=== PATIENT | male | born 1970 | race Caucasian/White ===

== ENCOUNTER 2022-06-16 10:21 | Outpatient (CLI) | payer BC, SELFPAY ==
[2022-06-16 13:01] LABS: Albumin* 4.7 g/dL (3.3-5.0)
[2022-06-16 13:02] LABS: Chloride* 103 mmol/L (96-114); Potassium* 4.3 mmol/L (3.6-5.1); Sodium* 139 mmol/L (135-149)
[2022-06-16 13:04] LABS: Aspartate Amino Transferase* 23 U/L (12-35); Bilirubin Total* 0.9 mg/dL (0.1-1.5); Blood Urea Nitrogen* 16 mg/dL (7-30); Carbon Dioxide* 28 mmol/L (20-32); Cholesterol* 200 mg/dL (90-199); Creatinine* 0.8 mg/dL (0.5-1.5); Estimated Glomerular Filt Rate 106 ml/min; Total Protein* 7.4 g/dL (6.0-8.3)
[2022-06-16 13:05] LABS: Alanine Aminotransferase* 40 U/L (4-50); Alkaline Phosphatase* 92 U/L (40-150); Calcium* 9.2 mg/dL (8.4-10.6); Glucose* 91 mg/dL (60-115); HDL Cholesterol* 39 mg/dL (>=40); LDL Cholesterol Calculated 145 mg/dL (<100); Triglycerides* 79 mg/dL (40-149)
[2022-06-16 13:31] LABS: PSA Screen* 1.35 ng/mL (0.10-4.00)
== END 2022-06-16 10:22 | disposition home or self-care (01) ==
PROVIDERS: PCP Physician Assistant Medical; Visit Provider Physician Assistant Medical
DX: Z00.00 Encounter for general adult medical examination without abnormal findings (principal); Z12.5 Encounter for screening for malignant neoplasm of prostate; Z13.6 Encounter for screening for cardiovascular disorders; Z13.29 Encounter for screening for other suspected endocrine disorder
CPT/HCPCS: 80053; 80061; 84153; 84443

== ENCOUNTER 2022-08-19 08:29 | Emergency (ER) | payer BC, SELFPAY ==
[2022-08-19 08:35] VITALS: BP 151/92; PULSE 82; RESP 16; TEMP 36.4; O2SAT 97; BMI 28.4
--- NOTE | 2022-08-19 08:56 | ED.GENADULT ---
HPI - General Adult General Time Seen by Provider: 08:57 Date Seen: 08/19/22 Chief complaint: Back Injury/Pain Stated complaint: Low back pain Time Seen by Provider: 08/19/22 08:36 Source: patient Mode of arrival: ambulatory Limitations: no limitations History of Present Illness HPI narrative: Patient is a 52 year white male who works a couple of jobs her fairly physical, as had a kink in his low back for few days. He went to [facility] he had physical therapy in a did help a lot he was started on a Medrol Dosepak and that is now completed. He decided to take a leave of absence for about 30 days from work. He has had no bowel or bladder symptoms fever chills perineal numbness he gets occasional symptoms down his right leg but mostly is troubles in his low back. He is scheduled for physical therapy again on Sunday, he has not tried chiropractic but did see some success with that in the past. He reports he had a plain film of his back with the physician at the orthopedic office and it was unremarkable. Related Data Home Medications Medication Instructions Recorded Confirmed B-Complex PO 06/19/22 Multiple vitamin PO 06/19/22 [place] 3 PO 06/19/22 Red yeast rice PO 06/19/22 coenzyme Q10 10 mg capsule 10 mg PO ONCE 06/19/22 06/19/22 tragacanth ea miscellaneous 06/19/22 06/19/22 Previous Rx's Medication Instructions Recorded celecoxib 200 mg capsule (Celebrex) 200 mg PO DAILY back #20 caps 08/19/22 Allergies Allergy/AdvReac Type Severity Reaction Status Date / Time pollen of maple; mold Allergy Mild Upper Uncoded 06/19/22 16:19 spores, dust mites; ragweed respiratory reaction No Known Allergy Allergy Unknown Unknown Uncoded 06/19/22 16:19 Review of Systems Status of ROS: Reports: 6 or more systems reviewed and unremarkable except as noted in History and below PFSH PFSH Surgical History Status post arthroscopic surgery of right knee Social History Smoking Status: Never smoker Little interest or pleasure in doing things: not at all Feeling down, depressed, or hopeless: not at all Exam Narrative: Exam Narrative: Patient stands with a slight lateral tilt to his low back Vital signs unremarkable and slightly elevated blood pressure No palpable tenderness to low back Negative straight leg raise bilaterally Normal strength sensation lower extremities, as patient is able to heel-toe walk normally Range of motion limited the back due to discomfort in the low back Const: Vital Signs, click to edit/add: Vital Signs - 24 hr 08/19/22 08:35 Temperature 97.5 F L Pulse Rate [Pulse Oximeter] 82 Respiratory Rate 16 Blood Pressure [Le ft Upper Arm] 151/92 H Pulse Oximetry 97 Oxygen Delivery Me thod Room Air Course Vital Signs Vital signs: Initial Vital Signs Temperature 97.5 F L 08/19/22 08:35 Temperature Source Temporal Artery Scan 08/19/22 08:35 Pulse Rate 82 08/19/22 08:35 Respiratory Rate 16 08/19/22 08:35 Blood Pressure 151/92 H 08/19/22 08:35 Blood Pressure Mean 111 08/19/22 08:35 Blood Pressure Position Sitting 08/19/22 08:35 Pulse Oximetry 97 08/19/22 08:35 Oxygen Delivery Method 08/19/22 08:35 Vital Signs Temperature 97.5 F L 08/19/22 08:35 Pulse Rate 82 08/19/22 08:35 Respiratory Rate 16 08/19/22 08:35 Blood Pressure 151/92 H 08/19/22 08:35 Pulse Oximetry 97 08/19/22 08:35 Oxygen Delivery Method 08/19/22 08:35 Temperature 97.5 F L 08/19/22 08:35 Pulse Rate 82 08/19/22 08:35 Respiratory Rate 16 08/19/22 08:35 Blood Pressure 151/92 H 08/19/22 08:35 Pulse Oximetry 97 08/19/22 08:35 Oxygen Delivery Method 08/19/22 08:35 Medical Decision Making MDM Narrative Medical decision making narrative: Patient appears to have a muscular issue with his low back, he has completed a prednisone course, he has undergone physical therapy. He has had a reassuring x-ray. Given the short duration of his symptoms I think continuing PT adding Celebrex 200 mg daily for a couple of weeks would be rule reasonable. If he is not improving follow up with primary doctor and then consider image advanced imaging if not better. He was comfortable plan will follow up as directed. Discharge Plan Discharge Clinical Impression: Acute low back pain Patient Disposition: Home, Self-Care Condition: Stable Additional Instructions: Regular walking, gentle range of motion, continue physical therapy, Celebrex 200 mg daily x2 weeks, follow-up with primary care in the next 3-4 days, return to ED as needed. Activity Level: Light activity Discharge Diet: Regular Prescriptions: New celecoxib [Celebrex] 200 mg capsule 200 mg PO DAILY Qty: 20 2RF No Action tragacanth Powder miscellaneous Red yeast rice PO [place] 3 PO Multiple vitamin PO coenzyme Q10 10 mg capsule 10 mg PO ONCE B-Complex PO Follow Up/Referrals: Gregoria Poon PA-C [Primary Care Provider] - Stand Alone Forms: [employer] Medical Info Instructions
== END 2022-08-19 09:09 | disposition home or self-care (01) ==
LOC: ED 08:57
PROVIDERS: Emergency Provider Family Medicine; PCP Physician Assistant Medical
DX: M54.50 Low back pain, unspecified (principal)
CPT/HCPCS: 99282; 99283

== ENCOUNTER 2023-06-19 08:24 | Outpatient (CLI) | payer BC, SELFPAY | END 2023-06-19 08:25 | disposition home or self-care (01) | PROVIDERS: PCP Physician Assistant Medical; Visit Provider Physician Assistant Medical | DX: Z00.00 Encounter for general adult medical examination without abnormal findings (principal); E78.5 Hyperlipidemia, unspecified; I10 Essential (primary) hypertension; K21.9 Gastro-esophageal reflux disease without esophagitis; L40.9 Psoriasis, unspecified; Z12.5 Encounter for screening for malignant neoplasm of prostate | CPT/HCPCS: 80053; 80061; 84153 ==

== ENCOUNTER 2024-06-23 08:00 | Outpatient (CLI) | payer BC, SELFPAY | END 2024-06-23 08:01 | disposition home or self-care (01) | LOC: NFLDREF 06-25 17:04 | PROVIDERS: PCP Physician Assistant Medical; Referring Provider Physician Assistant Medical; Visit Provider Physician Assistant Medical | DX: Z00.00 Encounter for general adult medical examination without abnormal findings (principal); E78.2 Mixed hyperlipidemia; G47.33 Obstructive sleep apnea (adult) (pediatric); L40.9 Psoriasis, unspecified; K21.9 Gastro-esophageal reflux disease without esophagitis; Z12.5 Encounter for screening for malignant neoplasm of prostate | CPT/HCPCS: 80061; 84443; G0103 ==

== ENCOUNTER 2025-06-11 08:15 | Outpatient (CLI) | payer BC, SELFPAY | END 2025-06-11 08:16 | disposition home or self-care (01) | LOC: NFLDREF 06-17 07:44 | PROVIDERS: PCP Physician Assistant Medical; Referring Provider Physician Assistant Medical; Visit Provider Physician Assistant Medical | DX: E78.2 Mixed hyperlipidemia (principal); Z00.00 Encounter for general adult medical examination without abnormal findings | CPT/HCPCS: 80053; 80061; 84443; G0103 ==